=== PATIENT | male | born 1975 | race Caucasian/White ===

== ENCOUNTER 2016-10-24 16:40 | Inpatient (IN) | payer OTHER, BC ==
[2016-10-24 16:56] VITALS: BMI 39.5
[2016-10-24] MEDS ORDERED: ONDANSETRON 4 MG/2 ML VIAL IVPB ONE (17:01)
[2016-10-24] MEDS ORDERED: CEFTRIAXONE 1 GM in DEXTROSE 5%-WATER - 50 ML IVPB ONE ×2 (17:33→20:18)
[2016-10-24] MEDS ORDERED: OSELTAMIVIR PHOSPHATE 75 MG CAPSULE PO ONE (17:33)
[2016-10-24] MEDS ORDERED: ACETAMINOPHEN 325 MG TABLET (FP) PO ONE (17:33)
[2016-10-24] MEDS ORDERED: AZITHROMYCIN IVPB 500 MG in DEXTROSE 5%-WATER - 250 ML IVPB ONE (17:33)
[2016-10-24] MEDS ORDERED: ACETAMINOPHEN 325 MG TABLET (FP) ONE (17:36)
[2016-10-24] MEDS ORDERED: OSELTAMIVIR PHOSPHATE 75 MG CAPSULE ONE (17:36)
[2016-10-24] MEDS ORDERED: CEFTRIAXONE 50 ML ONE ×2 (17:37→21:28)
[2016-10-24] MEDS ORDERED: ONDANSETRON 4 MG/2 ML VIAL ONE (17:37)
[2016-10-24] MEDS ORDERED: AZITHROMYCIN IVPB 250 ML IVPB ONE (17:37)
[2016-10-24 17:41] LABS: MCH 32.4 pg (25.7-33.7); MCHC 33.5 g/dl (32.0-35.9); MEAN CELL VOLUME 96.7 fl (80-96); MEAN PLT VOLUME 10.6 fl (7.5-11.1); PLATELET COUNT 258 K/MM3 (134-434); RDW 13.5 % (11.9-15.9); WHITE BLOOD COUNT 21.6 K/mm3 (4.0-10.0)
--- NOTE | 2016-10-24 17:45 | PDOC ---
History of Present Illness - General History Source: Patient, EMS, Family Exam Limitations: No Limitations - History of Present Illness Initial Comments: 10/24/16 18:12 The patient is a 40 year old male, with a significant past medical history of hypertension, hyperlipidemia, coronary artery disease s/p stent (on Coumadin), CHF, antiphospholipid syndrome, mixed connective disorder (not on meds), s/p splenectomy and who is currently undergoing workup for lupus, who presents to the emergency department via EMS from an urgent care with positive influenza A and hypotension. The patient reports feeling weak over the past couple of days so he visited an urgent care today for his symptoms. He was swabbed for the flu at the urgent care, which was positive for influenza A. At the urgent care, the patient was noted to have a BP of 70/40 so EMS was activated to bring the patient to an ED. Currently in the ED, the patient reports feeling weak and nauseous. The patient denies chest pain or shortness of breath. The patient denies cough, vomiting, diarrhea. The patient's and [id number] are at the bedside. Allergies: None reported. Past Surgical History: Cardiac Stent (2012), Splenectomy. Social History: Current some day smoker. Reports social alcohol consumption. Denies drug use. PCP: Dr. Steffen Hogan Dictaphone Typist: Dr. Fuller <Stella Gregory - Last Filed: 10/24/16 19:14> - General History Source: Patient, EMS Exam Limitations: No Limitations <Rosalio Parish - Last Filed: 10/24/16 20:21> - General Chief Complaint: Weakness Stated Complaint: WEAKNESS Time Seen by Provider: 10/24/16 16:49 Past History <Stella Gregory - Last Filed: 10/24/16 19:14> - Past Medical History Anemia: Yes Diabetes: No GI Disorders: No - Surgical History Cardiac Surgery: Yes (stent 2012) - Immunization History Immunization Up to Date: Yes - Psycho/Social/Smoking Cessation Hx Anxiety: No Suicidal Ideation: No Smoking Status: Yes Smoking History: Current every day smoker Years of Tobacco Use: 0 Number of Cigarettes Smoked Daily: 10 Information on smoking cessation initiated: No 'Breaking Loose' booklet given: 11/08/12 Hx Alcohol Use: Yes (socially) Drug/Substance Use Hx: (huka) Substance Use Type: Alcohol <Rosalio Parish - Last Filed: 10/24/16 20:21> - Past Medical History Allergies/Adverse Reactions: Allergies Allergy/AdvReac Type Severity Reaction Status Date / Time No Known Drug Allergies Allergy Verified 10/24/16 19:57 Home Medications: Ambulatory Orders Aspirin [ASA -] 81 mg PO DAILY 05/09/14 Clopidogrel Bisulfate [Plavix -] 75 mg PO DAILY 05/09/14 Lisinopril [Prinivil -] 5 mg PO DAILY 05/09/14 Metoprolol Succinate [Toprol XL -] 10 mg PO BID 05/09/14 Warfarin Sodium [Coumadin] 10 mg PO HS 05/09/14 Rosuvastatin Calcium [Crestor] 10 mg PO HS 10/24/16 Review of Systems - Review of Systems Able to Perform ROS?: Yes Comments:: 10/24/16 18:02 GENERAL/CONSTITUTIONAL: +Weakness. No fever or chills. HEAD, EYES, EARS, NOSE AND THROAT: No change in vision. No ear pain or discharge. No sore throat. CARDIOVASCULAR: No chest pain or shortness of breath. RESPIRATORY: No cough, wheezing, or hemoptysis. GASTROINTESTINAL: +Nausea. No vomiting, diarrhea or constipation. GENITOURINARY: No dysuria, frequency, or change in urination. MUSCULOSKELETAL: No joint or muscle swelling or pain. No neck or back pain. SKIN: No rash. NEUROLOGIC: No headache, vertigo, loss of consciousness, or change in strength/ sensation. ENDOCRINE: No increased thirst. No abnormal weight change. HEMATOLOGIC/LYMPHATIC: No anemia, easy bleeding, or history of blood clots. ALLERGIC/IMMUNOLOGIC: No hives or skin allergy. <Stella Gregory - Last Filed: 10/24/16 19:14> *Physical Exam - Vital Signs Last Vital Signs Temp Pulse Resp BP Pulse Ox 99.3 F 98 H 18 106/62 98 10/24/16 16:53 10/24/16 16:53 10/24/16 16:53 10/24/16 16:53 10/24/16 17:24 - Physical Exam Comments: 10/24/16 18:01 GENERAL: Awake, alert, and fully oriented, weak appearing. HEAD: No signs of trauma. EYES: PERRLA, EOMI, sclera anicteric, conjunctiva clear. ENT: Dry mucosa. Auricles normal inspection, hearing grossly normal, nares patent, oropharynx clear without exudates. NECK: Normal ROM, supple, no lymphadenopathy, JVD, or masses. LUNGS: Tachypneic to the mid 20s. Breath sounds equal, clear to auscultation bilaterally. No wheezes, and no crackles. HEART: Regular rate and rhythm, normal S1 and S2, no murmurs, rubs or gallops. ABDOMEN: Soft, nontender, normoactive bowel sounds. No guarding, no rebound. No masses. EXTREMITIES: Normal range of motion, no edema. No clubbing or cyanosis. No cords , erythema, or tenderness. NEUROLOGICAL: Cranial nerves II through XII intact. Normal speech, gait deferred. SKIN: Warm, dry, normal turgor, no rashes or lesions noted. <Stella Gregory - Last Filed: 10/24/16 19:14> - Vital Signs Last Vital Signs Temp Pulse Resp BP Pulse Ox 99.3 F 98 H 18 106/62 98 10/24/16 16:53 10/24/16 16:53 10/24/16 16:53 10/24/16 16:53 10/24/16 17:24 <Rosalio Parish - Last Filed: 10/24/16 20:21> Heart Score/ECG Review #1 ECG reviewed & interpreted by me at: 17:30 10/24/16 17:44 NSR 96, LVH, no std/yue, QTC 480 msec <Rosalio Parish - Last Filed: 10/24/16 20:21> ED Treatment Course - LABORATORY CBC & Chemistry Diagram: 10/24/16 17:10 10/24/16 17:10 - ADDITIONAL ORDERS Additional order review: Laboratory Results 10/24/16 17:42 VBG pH 7.38 POC VBG pCO2 43.9 POC VBG pO2 31.7 Mixed VBG HCO3 25.1 H - Medications Given in the ED: ED Medications Discontinued Medications Generic Name Dose Route Start Last Admin Trade Name Freq PRN Reason Stop Dose Admin Acetaminophen 650 mg 10/24/16 17:33 10/24/16 17:45 Tylenol - PO 10/24/16 17:34 650 mg ONCE ONE Administration Ondansetron HCl 4 mg 10/24/16 17:01 10/24/16 17:45 Zofran Injection IVPB 10/24/16 17:02 4 mg ONCE ONE Administration Oseltamivir Phosphate 75 mg 10/24/16 17:33 10/24/16 17:45 Tamiflu - PO 10/24/16 17:34 75 mg ONCE ONE Administration <Stella Gregory - Last Filed: 10/24/16 19:14> - LABORATORY CBC & Chemistry Diagram: 10/24/16 17:10 10/24/16 17:10 - RADIOLOGY Radiology Studies Ordered: Category Date Time Status CHEST X-RAY PORTABLE* [RAD] Stat Radiology 10/24/16 17:01 Ordered <Rosalio Parish - Last Filed: 10/24/16 20:21> Medical Decision Making - Medical Decision Making 10/24/16 19:14 EXAM: RAD/CHEST X-RAY PORTABLE Reviewed By: Dr. Pily Burrows IMPRESSION: No acute cardiopulmonary disease is present. <Stella Gregory - Last Filed: 10/24/16 19:14> - Medical Decision Making 10/24/16 17:45 A portion of this note was documented by scribe services under my direction. I have reviewed the details of the note, within reason, and agree with the documentation with the following case summary and management plan written by me. Patient treated in the ED. Nursing notes are reviewed and incorporated into the medical decision-making. Vital signs reviewed. Peripheral IV access obtained by the nurse, laboratory studies are drawn and sent, reviewed and interpreted by myself. Vital Signs Temp Pulse Resp BP Pulse Ox 99.3 F 98 H 18 106/62 98 10/24/16 16:53 10/24/16 16:53 10/24/16 16:53 10/24/16 16:53 10/24/16 17:24 40 year old male with past medical history of antiphospholipid syndrome, mixed connective disorder (not on meds), splenectomy, currently under workup for lupus , HTN, HLD, CAD, CHF sent in from [facility] for hypotension and positive for influenza A. The patient reported waking up and feeling very fatigue and general malaise. The patient was noted to have a BP of 70/40 at [facility] and EMS was activated. Pt was given 600cc of IVF with improvement to blood pressures to 110s. The patient denies chest pain, shortness of breath, diarrhea, vomiting. Will start tamiflu, and given low BP and hx of splenectomy, will initiate ceftriaxone and azithromycin for possible PNA. Will monitor BP. Sepsis protocol. Admit. 10/24/16 20:19 CBC, BMP 10/24/16 17:10 10/24/16 17:10 CMP Sodium 136 mmol/L (136-145) 10/24/16 17:10 Potassium 3.7 mmol/L (3.5-5.1) 10/24/16 17:10 Chloride 100 mmol/L (98-107) 10/24/16 17:10 Carbon Dioxide 24 mmol/L (21-32) 10/24/16 17:10 Anion Gap 10 (8-16) 10/24/16 17:10 BUN 17 mg/dL (7-18) D 10/24/16 17:10 Creatinine 0.9 mg/dL (0.7-1.3) D 10/24/16 17:10 Creat Clearance w eGFR > 60 (>60) 10/24/16 17:10 Random Glucose 106 mg/dL (74-106) 10/24/16 17:10 Lactic Acid 1.052 mmol/L (0.4-2.0) 10/24/16 17:10 Calcium 7.8 mg/dL (8.5-10.1) L 10/24/16 17:10 Total Bilirubin 1.5 mg/dL (0.2-1.0) H D 10/24/16 17:10 AST 52 U/L (15-37) H 10/24/16 17:10 ALT 47 U/L (12-78) D 10/24/16 17:10 Alkaline Phosphatase 76 U/L (45-117) D 10/24/16 17:10 Creatine Kinase 140 IU/L (39-308) 10/24/16 17:10 Troponin I < 0.02 ng/ml (0.00-0.05) 10/24/16 17:10 Total Protein 6.8 g/dl (6.4-8.2) 10/24/16 17:10 Albumin 3.0 g/dl (3.4-5.0) L 10/24/16 17:10 Chest xray reviewed. Case discussed with Dr. Ferguson. Requests that I add on 1.5g vanc and another 1 g of ceftriaxone to make a total of 2 g ceftriaxone. Case discussed with Dr. Cho. Accepted to admission. <Rosalio Parish - Last Filed: 10/24/16 20:21> *DC/Admit/Observation/Transfer - Attestations Scribe Attestion: 10/24/16 17:58 Documentation prepared by Stella Gregory, acting as medical transcription editor for Rosalio Parish MD. <Stella Gregory - Last Filed: 10/24/16 19:14> - Discharge Dispostion Admit: Yes <Rosalio Parish - Last Filed: 10/24/16 20:21> Diagnosis at time of Disposition: Influenza - Referrals Referrals: Steffen Hogan MD [Primary Care Provider] -
[2016-10-24 17:57] LABS: VENOUS BLOOD GAS HCO3 25.1 meq/L (19-25); VENOUS PH 7.38 (7.32-7.42)
[2016-10-24 18:24] LABS: PROTHROMBIN TIME (PATIENT) 33.8 SEC (9.98-11.88)
[2016-10-24 18:47] LABS: ACTIVATED PTT 136.9 SECONDS (26.9-34.4)
[2016-10-24 19:59] LABS: ALK PHOS 76 U/L (45-117); ANION GAP 10 (8-16); BILIRUBIN,TOTAL 1.5 mg/dL (0.2-1.0); CALCIUM 7.8 mg/dL (8.5-10.1); CO2 24 mmol/L (21-32); CREATININE 0.9 mg/dL (0.7-1.3); GLUCOSE,RANDOM 106 mg/dL (74-106); SGOT/AST 52 U/L (15-37); SGPT/ALT 47 U/L (12-78); TOT PROT 6.8 g/dl (6.4-8.2)
[2016-10-24 20:01] LABS: TROPONIN I < 0.02 ng/ml (0.00-0.05)
[2016-10-24] MEDS ORDERED: VANCOMYCIN 1,500 MG in DEXTROSE 5%-WATER - 500 ML IVPB ONE (20:18)
--- NOTE | 2016-10-24 22:43 | HP ---
CHIEF COMPLAINT: "Sent from urgent care with Influenza A positive" PCP: Dr. Steffen Munoz HISTORY OF PRESENT ILLNESS: Patient is a 40-year-old male was sent from urgent care with Influenza A positive. As per the patient, he was feeling well until last night, but woke up feeling weak, tired. Patient mentions he had fever (Tmax- 101F) with chills but no rigors or sweating. Associated with stuffy nose, runny nose, myalgia, generalized weakness. Patient also complained of nausea and 1 episode of vomiting but no abdominal pain. Had severe headache 05/05 especially frontal associated with dizziness. He went to the urgent care this afternoon and was positive for Influenza A and was hypotensive (BP-70/40 mmHg) and hence was sent here for further evaluation. Patient is currently being evaluated for possible Lupus as outpatient. He states that he had a spleenectomy done in 2011 (doesn't know why). Patient got vaccinated only two years (Until 2013) post splenectomy. ER course was notable for: (1) Temp-99.3 F; Tachycardic 98 bpm; Leukocytosis 21.6 (2) EKG- NSR 96bpm; LVH; Qtc 480 msec (3) Azithromycin; Vancomycin, Ceftriaxone 2gm; Tamiflu Recent Travel: None PAST MEDICAL HISTORY: Hypertension, Hyperlipidemia, coronary artery disease s/p stent (on Coumadin), CHF, antiphospholipid syndrome, mixed connective disorder ( not on meds), s/p splenectomy PAST SURGICAL HISTORY: As mentioned above Social History: Smoking: Smokes weed 1-2 joints/week; smokes cigarettes occasionally Alcohol: Occasional Drugs: Marijuana Family History: Father of [place] at the age of 44 years; Mother has CAD s/p stents Allergies No Known Drug Allergies Allergy (Verified 10/24/16 19:57) HOME MEDICATIONS: Home Medications Medication Instructions Recorded Aspirin [ASA -] 81 mg PO DAILY 05/09/14 Clopidogrel Bisulfate [Plavix -] 75 mg PO DAILY 05/09/14 Lisinopril [Prinivil -] 5 mg PO DAILY 05/09/14 Metoprolol Succinate [Toprol XL -] 10 mg PO BID 05/09/14 Warfarin Sodium [Coumadin] 10 mg PO HS 05/09/14 Rosuvastatin Calcium [Crestor] 10 mg PO HS 10/24/16 REVIEW OF SYSTEMS CONSTITUTIONAL: Present: Generalized weakness, fever, chills Absent: diaphoresis, malaise, loss of appetite, weight change HEENT: Absent: rhinorrhea, nasal congestion, throat pain, throat swelling, difficulty swallowing, mouth swelling, ear pain, eye pain, visual changes CARDIOVASCULAR: Absent: chest pain, syncope, palpitations, irregular heart rate, lightheadedness , peripheral edema RESPIRATORY: Present: Absent: cough, shortness of breath, dyspnea with exertion, orthopnea, wheezing, stridor, hemoptysis GASTROINTESTINAL: Present: nausea, vomiting Absent: abdominal pain, abdominal distension, diarrhea, constipation, melena, hematochezia GENITOURINARY: Absent: dysuria, frequency, urgency, hesitancy, hematuria, flank pain, genital pain MUSCULOSKELETAL: Absent: myalgia, arthralgia, joint swelling, back pain, neck pain SKIN: Absent: rash, itching, pallor HEMATOLOGIC/IMMUNOLOGIC: Absent: easy bleeding, easy bruising, lymphadenopathy, frequent infections ENDOCRINE: Absent: unexplained weight gain, unexplained weight loss, heat intolerance, cold intolerance NEUROLOGIC: Absent: headache, focal weakness or paresthesias, dizziness, unsteady gait, seizure, mental status changes, bladder or bowel incontinence PSYCHIATRIC: Absent: anxiety, depression, suicidal or homicidal ideation, hallucinations. PHYSICAL EXAMINATION Vital Signs - 24 hr 10/24/16 22:34 Temperature 98.6 F Pulse Rate [ 88 Apical] Respiratory 18 Rate Blood Pressure 112/67 [Left Arm] O2 Sat by Pulse 99 Oximetry (%) GENERAL: Obese patient, lying comfortably in bed, Awake, alert, and fully oriented, in no acute distress. HEAD: Normal with no signs of trauma. EYES: EOM intact, no pallor or icterus EARS, NOSE, THROAT: Ears normal. Moist mucous membranes. NECK:Supple. LUNGS: Decreased breath sounds bilaterally, clear to auscultation bilaterally. No wheezes, and no crackles. No accessory muscle use. HEART: Regular rate and rhythm, normal S1 and S2 without murmur, rub or gallop. ABDOMEN: Soft, nontender, not distended, normoactive bowel sounds, no guarding, no rebound, no masses. No hepatomegaly or splenomegaly. MUSCULOSKELETAL: Normal range of motion at all joints. No bony deformities or tenderness. No CVA tenderness. UPPER EXTREMITIES: 2+ pulses, warm, well-perfused. No cyanosis. No clubbing. No peripheral edema. LOWER EXTREMITIES: 2+ pulses, warm, well-perfused. No calf tenderness. No peripheral edema. NEUROLOGICAL: Cranial nerves II-XII intact. Normal speech. Normal gait. PSYCHIATRIC: Cooperative. Good eye contact. Appropriate mood and affect. SKIN: Warm, dry, normal turgor, no rashes or lesions noted, normal capillary refill. ASSESSMENT/PLAN: Patient is a 40-year-old male with significant past medical history of Hypertension, Hyperlipidemia, coronary artery disease s/p stent (on Coumadin), CHF, antiphospholipid syndrome, mixed connective disorder (not on meds), s/p splenectomy was sent from urgent care with Influenza A positive. # Sepsis most likely secondary to Influenza Patient presented with fever (Tmax-101F); chills; generalized weakness; nausea, vomiting (once); myalgia He went to the urgent care and was Influenza A positive and hypotensive (70/ 40 mmHg) was sent to the ED for further evaluation On arrival, patient Temp-99.3 F; Tachycardic 98 bpm; Leukocytosis 21.6 EKG- NSR 96bpm; LVH; Qtc 480 msec In the ED, patient received Azithromycin; Vancomycin, Ceftriaxone 2gm; Tamiflu Placed on observation in tele Continue IV Ceftriaxone 2 gm Daily Continue IV Vancomycin Tamiflu continued ID consult placed Blood cultures/ Urine culture pending Monitor vitals Isolation precaution # CHF (not in exacerbation) Patients recent Echo 2013: Inferior wall akinesis. Mild MR. Left ventricle is moderately dilated Would consider doing an echo as outpatient Continuous cardiac monitoring # s/p splenectomy Cause unknown Patient hasn't received any vaccinations since 2013 Would consider giving him vaccines covering encapsulated organisms # Hypertension Continue Metoprolol 50mg PO BID from tomorrow Hold Lisinopril Since patient was hypotensive when he came in, will hold one hypertensive meds for now # Hyperlipidemia Continue Statin # CAD s/p 2 stents Continue Aspirin, plavix, statin On coumadin (maintain INR 2-3) # Antiphopholipid syndrome # Mixed connective tissue disorder Not on any meds # ? Lupus Work up being done as outpatient Please try to get the paper works # FEN Gentle hydration Electrolytes to be repeated Sodium controlled diet # Prophylaxis For DVT- On Scds, patient ambulating For GI- Not indicated # Code Status: Full code # Dispo: Placed on observation. Likely 1-2 days. Illness, Investigation and Plan of care explained to the patient. He verbalized understanding. Case seen and discussed with Dr. Cho. Visit type - Emergency Visit Emergency Visit: Yes ED Registration Date: 10/24/16 Care time: The patient presented to the Emergency Department on the above date and was hospitalized for further evaluation of their emergent condition. - New Patient This patient is new to me today: Yes Date on this admission: 10/24/16 - Critical Care Critical Care patient: No
[2016-10-24] MEDS ORDERED: CEFTRIAXONE 50 ML IVPB ONE (22:48)
[2016-10-24] MEDS ORDERED: ONDANSETRON 4 MG/2 ML VIAL IVPB PRN (22:52)
--- NOTE | 2016-10-24 23:22 | PN ---
Teaching Attending Note Name of Resident: Zee Durbin Chief Complaint generalized weakness, myalgia and nausea x 1 day HPI 40 year old male presents with 1 day history of generalized weakness, myalgias , SOB and fever . Was seen in urgent care and found to have influenza A and low BP . Transferred to ER for further management due to history of splenectomy. ROS PMH Antiphospholipid Syndrome HTN CAD CHF MCTD PSH Splenectomy CCath resulting in placement of stents ALL NKA MEDS Home Medication List Medication Instructions Recorded Confirmed Type Aspirin [ASA -] 81 mg PO DAILY 05/09/14 10/24/16 History Clopidogrel Bisulfate [Plavix -] 75 mg PO DAILY 05/09/14 10/24/16 History Lisinopril [Prinivil -] 5 mg PO DAILY 05/09/14 10/24/16 History Metoprolol Succinate [Toprol XL -] 10 mg PO BID 05/09/14 10/24/16 History Warfarin Sodium [Coumadin] 10 mg PO HS 05/09/14 10/24/16 History Rosuvastatin Calcium [Crestor] 10 mg PO HS 10/24/16 10/24/16 History Physical Exam GEN in NAD CVS S1 S2 + no MRG RS CTA b/l ABD soft , NT EXT no edema no clubbing no cyanosis LABS Abnormal Lab Results 10/24/16 10/24/16 10/24/16 17:10 17:10 17:10 WBC 21.6 H D MCV 96.7 H Monocytes % 14.0 H INR 3.00 H D PTT (Actin FS) 136.9 H D Mixed VBG HCO3 Calcium 7.8 L Total Bilirubin 1.5 H D AST 52 H Albumin 3.0 L 10/24/16 17:42 WBC MCV Monocytes % INR PTT (Actin FS) Mixed VBG HCO3 25.1 H Calcium Total Bilirubin AST Albumin Influenza A positive CXR NAPD Asessment and Plan 1. Sepsis secondary to influenza - hypodermically stable after bolus of fluids . - Tamiflu -c/w IVF - ceftriaxone and vanco given per ID due to history of splenectomy . - blood cultures 2. History of antiphospholipid syndrome - c/w coumadin - INR daily 3. Hx of CAD - no chest pain - c/w metoprolol/ statin/ plavix 4. Hx of CHF -most recent documented EF WNL - stable 5. DVT PPX - anticoagulated
[2016-10-24] MEDS: SODIUM CHLORIDE 1,000 ML IV SCH (23:51)
[2016-10-24] MEDS ORDERED: ACETAMINOPHEN 325 MG TABLET (FP) PO PRN (23:55)
[2016-10-25 01:38] LABS: URINE APPEARANCE CLEAR; URINE BILIRUBIN NEGATIVE (NEGATIVE); URINE COLOR YELLOW; URINE GLUCOSE (UA) NEGATIVE (NEGATIVE); URINE KETONE TRACE (NEGATIVE); URINE LEUK ESTERASE NEGATIVE (NEGATIVE); URINE NITRITE NEGATIVE (NEGATIVE); URINE PROTEIN NEGATIVE (NEGATIVE); URINE UROBILINOGEN 4.0 E.U/dl E.U./dl (0.2-1.0)
[2016-10-25 02:18] LABS: URINE BLOOD 1+ (NEGATIVE)
[2016-10-25 04:10] LABS: URINE HYALINE CAST 1 /lpf; URINE MUCUS RARE; URINE RBC 2 /hpf (0-3); URINE WBC 2 /hpf (3-5)
[2016-10-25] MEDS ORDERED: INSULIN SLIDING SCALE (NOVOLOG) 1 VIAL SQ SCH (07:00)
[2016-10-25 08:59] LABS: BASOPHIL 0.5 % (0-2.0); EOSINOPHIL 0.6 % (0-4.5); MCH 33.2 pg (25.7-33.7); MCHC 33.8 g/dl (32.0-35.9); MEAN PLT VOLUME 10.5 fl (7.5-11.1); PLATELET COUNT 209 K/MM3 (134-434); WHITE BLOOD COUNT 17.8 K/mm3 (4.0-10.0)
--- NOTE | 2016-10-25 09:12 | PN ---
Physical Exam: SUBJECTIVE: Patient seen and examined Patient presented with fever (Tmax-101F); chills; generalized weakness; nausea , vomiting (once); myalgia He went to the urgent care and was found to have Influenza A positive with hypotenstion (70/40 mmHg) was sent to the ED for further evaluation. OBJECTIVE: Vital Signs Temperature 98.1 F 10/25/16 06:00 Pulse Rate 90 10/25/16 06:00 Respiratory Rate 20 10/25/16 06:00 Blood Pressure 135/69 10/25/16 06:00 O2 Sat by Pulse Oximetry (%) 97 10/25/16 00:37 GENERAL: The patient is awake, alert, and fully oriented, in no acute distress. HEAD: Normal with no signs of trauma. EYES: PERRL, extraocular movements intact, sclera anicteric, conjunctiva clear. ENT: Ears normal, positive for exudate , moist mucous membranes. NECK: Trachea midline, full range of motion, supple. LUNGS: Breath sounds equal, clear to auscultation bilaterally, no wheezes, no crackles, no accessory muscle use. HEART: Regular rate and rhythm, S1, S2 without murmur, rub or gallop. ABDOMEN: Soft, nontender, nondistended, normoactive bowel sounds, no guarding, no rebound, no hepatosplenomegaly, no masses. EXTREMITIES: 2+ pulses, warm, well-perfused, no edema. NEUROLOGICAL: Cranial nerves II through XII grossly intact. Normal speech, gait not observed. PSYCH: Normal mood, normal affect. SKIN: Warm, dry, normal turgor, no rashes or lesions noted CBCD WBC 17.8 K/mm3 (4.0-10.0) H 10/25/16 06:20 RBC 3.90 M/mm3 (4.00-5.60) L 10/25/16 06:20 Hgb 12.9 GM/dL (11.7-16.9) 10/25/16 06:20 Hct 38.3 % (35.4-49) 10/25/16 06:20 MCV 98.0 fl (80-96) H 10/25/16 06:20 MCHC 33.8 g/dl (32.0-35.9) 10/25/16 06:20 RDW 13.0 % (11.9-15.9) 10/25/16 06:20 Plt Count 209 K/MM3 (134-434) 10/25/16 06:20 MPV 10.5 fl (7.5-11.1) 10/25/16 06:20 CMP Sodium 136 mmol/L (136-145) 10/24/16 17:10 Potassium 3.7 mmol/L (3.5-5.1) 10/24/16 17:10 Chloride 100 mmol/L (98-107) 10/24/16 17:10 Carbon Dioxide 24 mmol/L (21-32) 10/24/16 17:10 Anion Gap 10 (8-16) 10/24/16 17:10 BUN 17 mg/dL (7-18) D 10/24/16 17:10 Creatinine 0.9 mg/dL (0.7-1.3) D 10/24/16 17:10 Creat Clearance w eGFR > 60 (>60) 10/24/16 17:10 Random Glucose 106 mg/dL (74-106) 10/24/16 17:10 Calcium 7.8 mg/dL (8.5-10.1) L 10/24/16 17:10 Total Bilirubin 1.5 mg/dL (0.2-1.0) H D 10/24/16 17:10 AST 52 U/L (15-37) H 10/24/16 17:10 ALT 47 U/L (12-78) D 10/24/16 17:10 Alkaline Phosphatase 76 U/L (45-117) D 10/24/16 17:10 Total Protein 6.8 g/dl (6.4-8.2) 10/24/16 17:10 Albumin 3.0 g/dl (3.4-5.0) L 10/24/16 17:10 CARDIAC ENZYMES Creatine Kinase 140 IU/L (39-308) 10/24/16 17:10 Troponin I < 0.02 ng/ml (0.00-0.05) 10/24/16 17:10 INR, PTT INR 3.00 (0.82-1.09) H D 10/24/16 17:10 Active Medications Generic Name Dose Route Start Last Admin Trade Name Freq PRN Reason Stop Dose Admin Aspirin 81 mg 10/25/16 10:00 Asa - PO DAILY JEAN Clopidogrel Bisulfate 75 mg 04/01/17 10:00 Plavix - PO DAILY [facility] Sodium Chloride 1,000 mls @ 100 mls/hr 10/24/16 23:00 10/24/16 23:51 Normal Saline - IV 100 mls/hr ASDIR [facility] Administration Ceftriaxone Sodium 100 mls @ 200 mls/hr 10/25/16 10:00 Rocephin 2gm Ivpb (Pre-Docked) IVPB DAILY [facility] Vancomycin HCl 1,250 mg/ 250 mls @ 166.667 mls/hr 10/25/16 10:00 Dextrose IVPB DAILY [facility] Protocol Metoprolol Succinate 50 mg 10/25/16 10:00 Toprol Xl - PO BID [facility] Oseltamivir Phosphate 75 mg 10/25/16 10:00 Tamiflu - PO 10/30/16 09:59 BID [facility] Rosuvastatin Calcium 10 mg 10/25/16 22:00 Crestor - PO HS [facility] Warfarin Sodium 10 mg 10/25/16 18:00 Coumadin - PO DAILY@1800 [facility] Home Medications Medication Instructions Recorded Aspirin [ASA -] 81 mg PO DAILY 05/09/14 Clopidogrel Bisulfate [Plavix -] 75 mg PO DAILY 05/09/14 Lisinopril [Prinivil -] 5 mg PO DAILY 05/09/14 Metoprolol Succinate [Toprol XL -] 10 mg PO BID 05/09/14 Warfarin Sodium [Coumadin] 10 mg PO HS 05/09/14 Rosuvastatin Calcium [Crestor] 10 mg PO HS 10/24/16 EKG- NSR 96bpm; LVH; Qtc 480 msec ASSESSMENT/PLAN: Patient is a 40-year-old male with significant past medical history of Hypertension, Hyperlipidemia, coronary artery disease s/p stent (on Coumadin), CHF, antiphospholipid syndrome, mixed connective disorder (not on meds), s/p splenectomy was sent from urgent care with Influenza A positive. On arrival, patient Temp-99.3 F; Tachycardic 98 bpm; Leukocytosis 21.6 # Sepsis most likely secondary to Influenza , IVF, started on Tamiflu, discussed with , On Rocephin IV and Vancomycin daily In the ED, patient received Azithromycin; Vancomycin, Ceftriaxone 2gm; Tamiflu. Follow Blood cultures/ Urine culture, droplet Isolation precaution # POsitive for exudative pharyngitis: On IV antibiotic, also culture was send after antibiotic was started. # s/p splenectomy with unknown cause, Patient hasn't received any vaccinations since 2013 he will need pneumonia vaccine and further recommendation as per ID # Antiphopholipid syndrome on daily coumadin, Daily INR, PT, INR is 3.00 today will continue # Hx of CHF stable(not in exacerbation); Patients recent Echo 2013: Inferior wall akinesis. Mild MR. Left ventricle is moderately dilated; repeat echo as outpatient Continuous cardiac monitoring # Hypertension continue Metoprolol 50mg PO BID from tomorrow, Hold Lisinopril Since patient was found to be hypotensive . # Hyperlipidemia continue Statin # CAD s/p 2 stents Continue Aspirin, plavix, statin # Mixed connective tissue disorder/ lupus work up as an outpatient, On anticoagulation ; coumadin (maintain INR 2-3) # DVT Px: Coumadin # Code Status: Full code Visit type - Emergency Visit Emergency Visit: Yes ED Registration Date: 10/24/16 Care time: The patient presented to the Emergency Department on the above date and was hospitalized for further evaluation of their emergent condition. - New Patient This patient is new to me today: Yes Date on this admission: 10/25/16 - Critical Care Critical Care patient: No
[2016-10-25] MEDS ORDERED: INFLUENZA VACCINE 45 MCG/0.5 ML (MDV 16-17) IM ONE (10:00)
[2016-10-25] MEDS ORDERED: VANCOMYCIN 1,250 MG in DEXTROSE 5%-WATER - 250 ML IVPB SCH (10:00)
[2016-10-25] MEDS ORDERED: PT OWN MED DRAWER 7, Y5N ONE (10:00)
[2016-10-25] MEDS: METOPROLOL SUCCINATE 50 MG TAB.SR.24H (FP) PO SCH ×2 (10:07→21:33)
[2016-10-25] MEDS: OSELTAMIVIR PHOSPHATE 75 MG CAPSULE PO SCH ×2 (10:07→21:34)
[2016-10-25] MEDS: CLOPIDOGREL BISULFATE 75 MG TABLET (FP) PO SCH (10:07)
[2016-10-25] MEDS: CEFTRIAXONE 100 ML IVPB SCH (10:13)
[2016-10-25] MEDS: ASPIRIN 81 MG CHEWABLE TABLETS PO SCH (10:14)
[2016-10-25 10:17] LABS: ALBUMIN 3.2 g/dl (3.4-5.0); ANION GAP 11 (8-16); BILIRUBIN,TOTAL 1.3 mg/dL (0.2-1.0); CALCIUM 8.1 mg/dL (8.5-10.1); CO2 23 mmol/L (21-32); CREATININE 0.8 mg/dL (0.7-1.3); GLUCOSE,RANDOM 86 mg/dL (74-106); MAGNESIUM 1.9 mg/dL (1.8-2.4); PHOSPHOROUS 2.3 mg/dL (2.5-4.9); SGOT/AST 61 U/L (15-37); SGPT/ALT 54 U/L (12-78); TOT PROT 6.6 g/dl (6.4-8.2)
[2016-10-25 10:18] LABS: ALK PHOS 85 U/L (45-117)
[2016-10-25 10:43] LABS: INR 2.57 (0.82-1.09); PROTHROMBIN TIME (PATIENT) 28.8 SEC (9.98-11.88)
--- NOTE | 2016-10-25 12:02 | PN ---
Progress Note (short form) - Note Progress Note: ID consult dictated 40 year old man with history of splenectom 2011 with sudden onset of weakness, stuffy nose headache and myalgias yesterday am, stayed in bed all day waent to [facility] in the evening, told he was positive for influenza A, noted to be hypotensive and EMS called, received IVF 600 cc with resolution of hypotension, reports fever 101 at home noted to have leukocytosis, influenza screen in our ED negative started on tamiflu cxray negative given vancomycin/rocephin and zithromax in Ed no cough, notes sore throat fells much better on PE he is quite comfortable +exudates on tonsils fever in 40 year old man s/p splenectomy 2011 reprts receiving al his vaccines at that time followed by Dr Steffen Hogan +influenza screen at [facility] ?exudative pharyngitis- throat culture sent but after antibiotics would continue ceftriaxone and tamiflu f/u cultures would contact PMD if he has not had Prevnar he should get prevnar followed by pneumovax 8 weeks later (last in 2011 per patient) he should get yearly influenza vaccine PMD should check his vaccine history for meningococcal vaccine- he should get vaccinated for A and B- this can be done as outpt by his PMD - d/w ED MD last pm as well d/w hospitalist today Problem List - Problems (1) Influenza Code(s): J11.1 - FLU DUE TO UNIDENTIFIED INFLUENZA VIRUS W OTH RESP MANIFEST (2) Pharyngitis Code(s): J02.9 - ACUTE PHARYNGITIS, UNSPECIFIED (3) Post-splenectomy Code(s): Z90.81 - ACQUIRED ABSENCE OF SPLEEN
--- NOTE | 2016-10-25 12:20 | EKG ---
Test Reason : Blood Pressure : / mmHG Vent. Rate : 096 BPM Atrial Rate : 096 BPM P-R Int : 176 ms QRS Dur : 100 ms QT Int : 380 ms P-R-T Axes : 017 -22 060 degrees QTc Int : 480 ms NORMAL SINUS RHYTHM MINIMAL VOLTAGE CRITERIA FOR LVH, MAY BE NORMAL VARIANT PROLONGED QT ABNORMAL ECG WHEN COMPARED WITH ECG OF 10-MAY-2014 08:33, VENT. RATE HAS INCREASED BY 32 BPM NONSPECIFIC T WAVE ABNORMALITY, IMPROVED IN LATERAL LEADS Confirmed by PRABHA SAHU MD ([id number]) on 10/25/2016 12:19:56 PM Referred By: Confirmed By:PRABHA SAHU MD
--- NOTE | 2016-10-25 14:23 | CONS ---
DATE OF CONSULTATION: DATE OF DICTATION: 10/25/2016 Requested by the hospitalist service. A 40-year-old man with a past medical history of splenectomy in 2011, apparently done at [facility], for an enlarged spleen. He is followed by Dr. Cisneros. He reports having received his vaccinations, prior to his elective splenectomy, at that time. He reports he has not received any future vaccinations and did not get an influenza vaccine this year. He was well on night. On Thursday morning, he awoke with generalized weakness, stuffy nose, headache. He felt very, very achy. He vomited 1 time. There was no diarrhea. There was no dysuria. There was no cough. He spent the day in bed. His [id number] came over later in the day, noted that he was not appearing well, so he took him to the urgent care center where they screened him for influenza A. He was found to be positive. He was hypotensive with a blood pressure of 70/40. EMS was called. He received 600 mL of IV fluids by EMS with resolution of his hypotension. He reports having had fever of 101, yesterday. He has no history of any travel. He has two children, 2 and 5, and the 2-year-old has a runny nose. He has not recently been hospitalized. PAST MEDICAL HISTORY: Notable for a history of hypertension, hyperlipidemia, coronary artery disease status post stent. He has a history of congestive heart failure, antiphospholipid syndrome, mixed connective tissue disorder. His only surgery is that he is status post splenectomy. He is followed by Dr. Steffen Hogan. ALLERGIES: He has no known drug allergies. MEDICATIONS: As an outpatient include aspirin, Plavix, lisinopril, Toprol XL, Coumadin, and Crestor. FAMILY HISTORY: His father of coronary artery disease. SOCIAL HISTORY: He is . He has two children, 2 and 5. 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 He does not use public transportation. He smokes marijuana occasionally and reports social alcohol use. There is no drug use. REVIEW OF SYSTEMS: There is no diarrhea. His weakness has resolved. He has no cough. He notes he has a sore throat. PHYSICAL EXAMINATION: General: He is a young man in no acute distress. Vital signs: He weighs 260 pounds. Temperature is 98.1, T-max of 99; pulse of 90; blood pressure 135/69; respiratory rate is 22. HEENT: Exam is normocephalic. His eyes are anicteric. He has exudates on his tonsils. Neck: Supple. He has shoddy cervical adenopathy. Lungs: Clear to auscultation. Heart: Regular rate and rhythm. Abdomen: Soft. Nontender. He has a well healed abdominal scar from a splenectomy. Extremities: Without edema. Skin: He has no rash. LABORATORIES: Notable for a white count today of 17.8, was 21.6 yesterday. INR is 2.5. BUN is 11 and creatinine is 0.8. His urinalysis has 2 white cells. His chest x-ray is negative for infiltrate. Blood cultures and urine culture are pending. Influenza screen done in our institution is negative. ASSESSMENT AND PLAN: This is fever in a 40-year-old man, status post splenectomy in 2011, who reports having received his vaccines at that time, with a positive influenza screen done at [facility]. Question of exudative pharyngitis on examination. I did a throat culture now, but this is after he received antibiotics of vancomycin, Rocephin and Zithromax in the emergency room. I would suggest we continue ceftriaxone and Tamiflu, at this time, with droplet isolation. Follow up his cultures. Would contact his PMD. If he has not had Prevnar, he should get Prevnar followed by Pneumovax 8 weeks later. He should get a yearly influenza vaccine. His PMD should check his vaccine history for meningococcal vaccination, if he has not been vaccinated for it. He has probably been vaccinated for A, which would have been a recommendation 5 years ago. If he has not been vaccinated for B, this can be done as an outpatient by his PMD. This was all discussed with the hospitalist. Further recommendations to follow. ELHAM QUINN M.D. [id number]
[2016-10-25] MEDS: WARFARIN NA 10 MG TABLET (FP) PO SCH (18:08)
[2016-10-25] MEDS ORDERED: ACETAMINOPHEN 325 MG TABLET (FP) PO ONE (20:07)
[2016-10-25] MEDS: ROSUVASTATIN CA 10 MG TABLET (FP) PO SCH (21:33)
[2016-10-25] MEDS: SODIUM CHLORIDE 1,000 ML IV SCH (22:42)
[2016-10-26] MEDS ORDERED: PT OWN MED DRAWER 7, Y5N ONE ×2 (09:33→20:58)
[2016-10-26] MEDS: OSELTAMIVIR PHOSPHATE 75 MG CAPSULE PO SCH ×2 (09:39→21:04)
[2016-10-26] MEDS: CEFTRIAXONE 100 ML IVPB SCH (09:39)
[2016-10-26] MEDS: METOPROLOL SUCCINATE 50 MG TAB.SR.24H (FP) PO SCH ×2 (09:39→21:04)
[2016-10-26] MEDS: ASPIRIN 81 MG CHEWABLE TABLETS PO SCH (09:39)
[2016-10-26] MEDS: CLOPIDOGREL BISULFATE 75 MG TABLET (FP) PO SCH (09:39)
[2016-10-26] MEDS ORDERED: PNEUMOC 13-VAL CONJ-DIP CRM/PF 0.5 ML DISP.SYRIN IM ONE ×2 (10:33→20:00)
--- NOTE | 2016-10-26 10:41 | PN ---
Progress Note (short form) - Note Progress Note: feels much better still some sore throat and stuffy nose Vital Signs Period Temp Pulse Resp BP Sys/[place] Pulse Ox Last 24 Hr 97.8 F-99.7 F 76-84 18-20 106-119/50-82 96 no pharyngeal exudates noted cor-rrr lungs clear abd soft,nt ext no edema CBC, BMP 10/25/16 06:20 10/25/16 06:20 Microbiology 10/25/16 12:00 Throat Throat Culture - Final NO BETA HEMOLYTIC STREPTOCOCCI ISOLATED 10/24/16 17:06 Blood - Peripheral Venous Blood Culture - Preliminary NO GROWTH OBTAINED AFTER 24 HOURS, INCUBATION TO CONTINUE FOR 4 DAYS. 10/24/16 17:06 Blood - Peripheral Venous Blood Culture - Preliminary NO GROWTH OBTAINED AFTER 24 HOURS, INCUBATION TO CONTINUE FOR 4 DAYS. 10/24/16 21:30 Nasopharyngeal Swab Influenza Types A,B Antigen (JAVI) - Final 10/24/16 21:30 Nasopharyngeal Swab - Final a/p influenza A- tamiflu 5 days and flu vaccine (given) ?strep throat- culture sent after antiotics started he had exudative pharyngitis post splenectomy- prevnar prior to d/c, f/u PMD for further vaccines symptoms all improving f/u labs today liver/gb ultrasound for elevated bili (improving) today would complete course of antibiotics (now day #3 rocephin) po augmentin for one week for possible pharyngitis d/w Dr Matamoros Problem List - Problems (1) Influenza Code(s): J11.1 - FLU DUE TO UNIDENTIFIED INFLUENZA VIRUS W OTH RESP MANIFEST (2) Pharyngitis Code(s): J02.9 - ACUTE PHARYNGITIS, UNSPECIFIED (3) Post-splenectomy Code(s): Z90.81 - ACQUIRED ABSENCE OF SPLEEN
[2016-10-26 11:45] LABS: BASOPHIL 0.4 % (0-2.0); EOSINOPHIL 2.2 % (0-4.5); MCH 32.8 pg (25.7-33.7); MCHC 33.8 g/dl (32.0-35.9); MEAN CELL VOLUME 96.9 fl (80-96); MEAN PLT VOLUME 10.5 fl (7.5-11.1); NEUTROPHILS 58.9 % (42.8-82.8); PLATELET COUNT 220 K/MM3 (134-434)
[2016-10-26 11:58] LABS: INR 2.33 (0.82-1.09); PROTHROMBIN TIME (PATIENT) 26.1 SEC (9.98-11.88)
--- NOTE | 2016-10-26 12:01 | PN ---
Progress Note (short form) - Note Progress Note: Patient is feeling better, wants to go home. No fever or chills, no shortness of breath. Vital Signs Temperature 99.3 F 10/26/16 10:00 Pulse Rate 80 10/26/16 10:00 Respiratory Rate 20 10/26/16 10:00 Blood Pressure 106/58 10/26/16 10:00 O2 Sat by Pulse Oximetry (%) 96 10/25/16 21:00 GENERAL: The patient is awake, alert, and fully oriented, in no acute distress. HEAD: Normal with no signs of trauma. EYES: PERRL, extraocular movements intact, sclera anicteric, conjunctiva clear. ENT: Ears normal, positive for exudate , moist mucous membranes. NECK: Trachea midline, full range of motion, supple. LUNGS: Breath sounds equal, clear to auscultation bilaterally, no wheezes, no crackles, no accessory muscle use. HEART: Regular rate and rhythm, S1, S2 without murmur, rub or gallop. ABDOMEN: Soft, nontender, nondistended, normoactive bowel sounds, no guarding, no rebound, no hepatosplenomegaly, no masses. EXTREMITIES: 2+ pulses, warm, well-perfused, no edema. NEUROLOGICAL: Cranial nerves II through XII grossly intact. Normal speech, gait not observed. PSYCH: Normal mood, normal affect. SKIN: Warm, dry, normal turgor, no rashes or lesions noted CBCD WBC 10.0 K/mm3 (4.0-10.0) D 10/26/16 11:15 RBC 4.13 M/mm3 (4.00-5.60) 10/26/16 11:15 Hgb 13.5 GM/dL (11.7-16.9) 10/26/16 11:15 Hct 40.0 % (35.4-49) 10/26/16 11:15 MCV 96.9 fl (80-96) H 10/26/16 11:15 MCHC 33.8 g/dl (32.0-35.9) 10/26/16 11:15 RDW 13.0 % (11.9-15.9) 10/26/16 11:15 Plt Count 220 K/MM3 (134-434) 10/26/16 11:15 MPV 10.5 fl (7.5-11.1) 10/26/16 11:15 CMP Sodium 136 mmol/L (136-145) 10/25/16 06:20 Potassium 3.9 mmol/L (3.5-5.1) 10/25/16 06:20 Chloride 102 mmol/L (98-107) 10/25/16 06:20 Carbon Dioxide 23 mmol/L (21-32) 10/25/16 06:20 Anion Gap 11 (8-16) 10/25/16 06:20 BUN 11 mg/dL (7-18) D 10/25/16 06:20 Creatinine 0.8 mg/dL (0.7-1.3) 10/25/16 06:20 Creat Clearance w eGFR > 60 (>60) 10/25/16 06:20 Random Glucose 86 mg/dL (74-106) 10/25/16 06:20 Calcium 8.1 mg/dL (8.5-10.1) L 10/25/16 06:20 Total Bilirubin 1.3 mg/dL (0.2-1.0) H 10/25/16 06:20 AST 61 U/L (15-37) H 10/25/16 06:20 ALT 54 U/L (12-78) 10/25/16 06:20 Alkaline Phosphatase 85 U/L (45-117) 10/25/16 06:20 Total Protein 6.6 g/dl (6.4-8.2) 10/25/16 06:20 Albumin 3.2 g/dl (3.4-5.0) L 10/25/16 06:20 CARDIAC ENZYMES Creatine Kinase 140 IU/L (39-308) 10/24/16 17:10 Troponin I < 0.02 ng/ml (0.00-0.05) 10/24/16 17:10 Current Medications Generic Name Dose Route Start Last Admin Trade Name Freq PRN Reason Stop Dose Admin Aspirin 81 mg 10/25/16 10:00 10/26/16 09:39 Asa - PO 81 mg DAILY JEAN Administration Clopidogrel Bisulfate 75 mg 10/25/16 10:00 10/26/16 09:39 Plavix - PO 75 mg DAILY JEAN Administration Sodium Chloride 1,000 mls @ 100 mls/hr 10/24/16 23:00 10/25/16 22:42 Normal Saline - IV 100 mls/hr ASDIR JEAN Administration Ceftriaxone Sodium 100 mls @ 200 mls/hr 10/25/16 10:00 10/26/16 09:39 Rocephin 2gm Ivpb (Pre-Docked) IVPB 200 mls/hr DAILY JEAN Administration Metoprolol Succinate 50 mg 10/25/16 10:00 10/26/16 09:39 Toprol Xl - PO 50 mg BID JEAN Administration Oseltamivir Phosphate 75 mg 10/25/16 10:00 10/26/16 09:39 Tamiflu - PO 10/30/16 09:59 75 mg BID JEAN Administration Rosuvastatin Calcium 10 mg 10/25/16 22:00 10/25/16 21:33 Crestor - PO 10 mg HS JEAN Administration Warfarin Sodium 10 mg 10/25/16 18:00 10/25/16 18:08 Coumadin - PO 10 mg DAILY@1800 JEAN Administration Home Medications Medication Instructions Recorded Aspirin [ASA -] 81 mg PO DAILY 05/09/14 Clopidogrel Bisulfate [Plavix -] 75 mg PO DAILY 05/09/14 Lisinopril [Prinivil -] 5 mg PO DAILY 05/09/14 Metoprolol Succinate [Toprol XL -] 10 mg PO BID 05/09/14 Warfarin Sodium [Coumadin] 10 mg PO HS 05/09/14 Rosuvastatin Calcium [Crestor] 10 mg PO HS 10/24/16 Laboratory Tests 10/24/16 10/25/16 10/26/16 17:10 09:55 11:15 INR 3.00 H D 2.57 H 2.33 H Microbiology 10/24/16 17:06 Blood - Peripheral Venous Blood Culture - Preliminary NO GROWTH OBTAINED AFTER 48 HOURS, INCUBATION TO CONTINUE FOR 3 DAYS. 10/24/16 17:06 Blood - Peripheral Venous Blood Culture - Preliminary NO GROWTH OBTAINED AFTER 48 HOURS, INCUBATION TO CONTINUE FOR 3 DAYS. 10/24/16 23:10 Urine - Urine Clean Catch Urine Culture - Final NO GROWTH OBTAINED 10/25/16 12:00 Throat Throat Culture - Final NO BETA HEMOLYTIC STREPTOCOCCI ISOLATED 10/24/16 21:30 Nasopharyngeal Swab Influenza Types A,B Antigen (JAVI) - Final 10/24/16 21:30 Nasopharyngeal Swab - Final EKG- NSR 96bpm; LVH; Qtc 480 msec ASSESSMENT/PLAN: Patient is a 40-year-old male with significant past medical history of Hypertension, Hyperlipidemia, coronary artery disease s/p stent (on Coumadin), CHF, antiphospholipid syndrome, mixed connective disorder (not on meds), s/p splenectomy was sent from urgent care with Influenza A positive. On arrival, patient Temp-99.3 F; Tachycardic 98 bpm; Leukocytosis 21.6 # Sepsis due Influenza and exudative pharyngitis, IVF, started on Tamiflu, discussed with , On Rocephin IV and Vancomycin daily to continue for now, In the ED, patient received Azithromycin; Vancomycin, Ceftriaxone 2gm; Tamiflu.droplet Isolation precaution # Positive for exudative pharyngitis: On IV antibiotic, also culture was send after antibiotic was started. # s/p splenectomy , Patient hasn't received any vaccinations since 2013, As per ID recommendations ,pneumonia vaccine and Flu vaccine. # Antiphopholipid syndrome on daily coumadin, Daily INR, PT, INR is 2.33 today will continue # Hx of CHF stable (not in exacerbation); Patients recent Echo 2013: Inferior wall akinesis. Mild MR. Left ventricle is moderately dilated; repeat echo as outpatient , continue cardiac monitoring # Hypertension continue Metoprolol 50mg PO BID from tomorrow, Hold Lisinopril Since patient was found to be hypotensive . # Hyperlipidemia continue Statin # CAD s/p 2 stents Continue Aspirin, plavix, statin # Mixed connective tissue disorder/ lupus work up as an outpatient, On anticoagulation ; coumadin (maintain INR 2-3) # DVT Px: Coumadin Visit type - Emergency Visit Emergency Visit: Yes ED Registration Date: 10/24/16 Care time: The patient presented to the Emergency Department on the above date and was hospitalized for further evaluation of their emergent condition. - New Patient This patient is new to me today: No - Critical Care Critical Care patient: No
[2016-10-26 12:51] LABS: ALK PHOS 91 U/L (45-117); ANION GAP 12 (8-16); BILIRUBIN,TOTAL 0.8 mg/dL (0.2-1.0); CO2 22 mmol/L (21-32); CREATININE 0.7 mg/dL (0.7-1.3); GLUCOSE,RANDOM 112 mg/dL (74-106); SGOT/AST 60 U/L (15-37); SGPT/ALT 52 U/L (12-78); TOT PROT 6.7 g/dl (6.4-8.2)
[2016-10-26] MEDS: WARFARIN NA 10 MG TABLET (FP) PO SCH (17:37)
[2016-10-26] MEDS: ROSUVASTATIN CA 10 MG TABLET (FP) PO SCH (21:04)
[2016-10-27] MEDS: SODIUM CHLORIDE 1,000 ML IV SCH (00:53)
[2016-10-27] MEDS ORDERED: CEFTRIAXONE 100 ML IVPB SCH (06:00)
[2016-10-27 06:26] LABS: BASOPHIL 0.5 % (0-2.0); EOSINOPHIL 2.5 % (0-4.5); MCH 33.2 pg (25.7-33.7); MEAN CELL VOLUME 97.6 fl (80-96); MEAN PLT VOLUME 10.4 fl (7.5-11.1); NEUTROPHILS 49.8 % (42.8-82.8); PLATELET COUNT 217 K/MM3 (134-434); RDW 13.4 % (11.9-15.9); WHITE BLOOD COUNT 10.4 K/mm3 (4.0-10.0)
[2016-10-27 06:39] LABS: INR 2.65 (0.82-1.09); PROTHROMBIN TIME (PATIENT) 29.7 SEC (9.98-11.88)
[2016-10-27 07:37] LABS: ALBUMIN 2.9 g/dl (3.4-5.0); ALK PHOS 80 U/L (45-117); ANION GAP 10 (8-16); BILIRUBIN,TOTAL 0.7 mg/dL (0.2-1.0); CALCIUM 7.9 mg/dL (8.5-10.1); CO2 23 mmol/L (21-32); CREATININE 0.6 mg/dL (0.7-1.3); GLUCOSE,RANDOM 96 mg/dL (74-106); SGOT/AST 50 U/L (15-37); SGPT/ALT 50 U/L (12-78); TOT PROT 6.6 g/dl (6.4-8.2)
--- NOTE | 2016-10-27 07:50 | PN ---
Teaching Attending Note Name of Resident: Haseeb Jones ATTENDING PHYSICIAN STATEMENT I saw and evaluated the patient. I reviewed the resident's note and discussed the case with the resident. I agree with the resident's findings and plan as documented. Patient is feeling better, with no acute distress Vital Signs Temperature 97.8 F 10/27/16 06:00 Pulse Rate 70 10/27/16 06:00 Respiratory Rate 18 10/27/16 06:00 Blood Pressure 110/66 10/27/16 06:00 O2 Sat by Pulse Oximetry (%) 98 10/26/16 21:00 CBCD WBC 10.4 K/mm3 (4.0-10.0) H 10/27/16 05:35 RBC 4.05 M/mm3 (4.00-5.60) 10/27/16 05:35 Hgb 13.5 GM/dL (11.7-16.9) 10/27/16 05:35 Hct 39.5 % (35.4-49) 10/27/16 05:35 MCV 97.6 fl (80-96) H 10/27/16 05:35 MCHC 34.0 g/dl (32.0-35.9) 10/27/16 05:35 RDW 13.4 % (11.9-15.9) 10/27/16 05:35 Plt Count 217 K/MM3 (134-434) 10/27/16 05:35 MPV 10.4 fl (7.5-11.1) 10/27/16 05:35 CMP Sodium 140 mmol/L (136-145) 10/27/16 06:00 Potassium 4.1 mmol/L (3.5-5.1) 10/27/16 06:00 Chloride 107 mmol/L (98-107) 10/27/16 06:00 Carbon Dioxide 23 mmol/L (21-32) 10/27/16 06:00 Anion Gap 10 (8-16) 10/27/16 06:00 BUN 12 mg/dL (7-18) 10/27/16 06:00 Creatinine 0.6 mg/dL (0.7-1.3) L 10/27/16 06:00 Creat Clearance w eGFR > 60 (>60) 10/27/16 06:00 Random Glucose 96 mg/dL (74-106) 10/27/16 06:00 Calcium 7.9 mg/dL (8.5-10.1) L 10/27/16 06:00 Total Bilirubin 0.7 mg/dL (0.2-1.0) 10/27/16 06:00 AST 50 U/L (15-37) H 10/27/16 06:00 ALT 50 U/L (12-78) 10/27/16 06:00 Alkaline Phosphatase 80 U/L (45-117) 10/27/16 06:00 Total Protein 6.6 g/dl (6.4-8.2) 10/27/16 06:00 Albumin 2.9 g/dl (3.4-5.0) L 10/27/16 06:00 CARDIAC ENZYMES Creatine Kinase 140 IU/L (39-308) 10/24/16 17:10 Troponin I < 0.02 ng/ml (0.00-0.05) 10/24/16 17:10 Current Medications Generic Name Dose Route Start Last Admin Trade Name Freq PRN Reason Stop Dose Admin Aspirin 81 mg 10/25/16 10:00 10/26/16 09:39 Asa - PO 81 mg DAILY JEAN Administration Clopidogrel Bisulfate 75 mg 10/25/16 10:00 10/26/16 09:39 Plavix - PO 75 mg DAILY JEAN Administration Sodium Chloride 1,000 mls @ 100 mls/hr 10/24/16 23:00 10/27/16 00:53 Normal Saline - IV 100 mls/hr ASDIR JEAN Administration Ceftriaxone Sodium 100 mls @ 200 mls/hr 10/27/16 06:00 10/27/16 05:05 Rocephin 2gm Ivpb (Pre-Docked) IVPB 200 mls/hr DAILY@0600 JEAN Administration Metoprolol Succinate 50 mg 10/25/16 10:00 10/26/16 21:04 Toprol Xl - PO 50 mg BID JEAN Administration Oseltamivir Phosphate 75 mg 10/25/16 10:00 10/26/16 21:04 Tamiflu - PO 10/30/16 09:59 75 mg BID JEAN Administration Rosuvastatin Calcium 10 mg 10/25/16 22:00 10/26/16 21:04 Crestor - PO 10 mg HS JEAN Administration Warfarin Sodium 10 mg 10/25/16 18:00 04/02/17 17:37 Coumadin - PO 10 mg DAILY@1800 [facility] Administration Home Medications Medication Instructions Recorded Aspirin [ASA -] 81 mg PO DAILY 05/09/14 Clopidogrel Bisulfate [Plavix -] 75 mg PO DAILY 05/09/14 Lisinopril [Prinivil] 5 mg PO DAILY 05/09/14 Metoprolol Succinate [Toprol XL -] 10 mg PO BID 05/09/14 Warfarin Sodium [Coumadin] 10 mg PO HS 05/09/14 Rosuvastatin Calcium [Crestor] 10 mg PO HS 10/24/16 Oseltamivir Phosphate [Tamiflu -] 75 mg PO BID #4 cap 10/27/16 EKG- NSR 96bpm; LVH; Qtc 480 msec ASSESSMENT/PLAN: Patient is a 40-year-old male with significant past medical history of Hypertension, Hyperlipidemia, coronary artery disease s/p stent (on Coumadin), CHF, antiphospholipid syndrome, mixed connective disorder (not on meds), s/p splenectomy was sent from urgent care with Influenza A positive. On arrival, patient Temp-99.3 F; Tachycardic 98 bpm; Leukocytosis 21.6 # s/p Sepsis due to Influenza , will discharge patient home on Tamiflu, and Augmentin for one week for his pharyngitis # Exudative pharyngitis will send the patient home on po Augmentin x 1 week # S/p splenectomy Patient hasn't received any vaccinations since 2013, received Prevnar vaccine , need to receive pneumovax in 8 weeks, Influnza Vaccine as an outpatient. # Antiphopholipid syndrome on daily coumadin, Daily INR, PT, INR is 3.00 today will continue # Hx of CHF stable; Patients recent Echo 2013: Inferior wall akinesis. Mild MR. Left ventricle is moderately dilated; repeat echo as outpatient # Hypertension controlled continue Metoprolol 50mg PO BID from tomorrow, Hold Lisinopril Since patient was found to be hypotensive . # Hyperlipidemia continue Statin # CAD s/p 2 stents Continue Aspirin, plavix, statin # Mixed connective tissue disorder/ lupus work up as an outpatient, On anticoagulation ; coumadin (maintain INR 2-3) # DVT Px: Coumadin will discharge patient home, further testing as an outpatient , Repeat LFTs in a week, US of liver/abdomen , follow up with ur field marketing associate in a week
[2016-10-27 08:21] VITALS: BP 120/78; PULSE 78; TEMP 98.3
--- NOTE | 2016-10-27 08:44 | DS ---
Physical Exam: SUBJECTIVE: Patient seen and examined OBJECTIVE: Vital Signs Period Temp Pulse Resp BP Sys/[place] Pulse Ox Last 24 Hr 97.8 F-99.3 F 70-80 18-20 106-126/58-78 96-98 PHYSICAL EXAM GENERAL: The patient is awake, alert, and fully oriented, in no acute distress. HEAD: Normal with no signs of trauma. moist mucous membranes. NECK: Trachea midline, full range of motion, supple. LUNGS: Breath sounds equal, clear to auscultation bilaterally, no wheezes, no crackles, no accessory muscle use. HEART: Regular rate and rhythm, S1, S2 without murmur, rub or gallop. ABDOMEN: Soft, nontender, nondistended, normoactive bowel sounds, no guarding, no rebound, no hepatosplenomegaly, no masses. LABS Laboratory Results - last 24 hr 10/26/16 10/26/16 10/26/16 11:15 11:15 11:15 WBC 10.0 D RBC 4.13 Hgb 13.5 Hct 40.0 MCV 96.9 H MCHC 33.8 RDW 13.0 Plt Count 220 MPV 10.5 Neutrophils % 58.9 Lymphocytes % 25.4 Monocytes % 13.1 H Eosinophils % 2.2 D Basophils % 0.4 INR 2.33 H Sodium 140 Potassium 4.1 Chloride 106 Carbon Dioxide 22 Anion Gap 12 BUN 10 Creatinine 0.7 Creat Clearance w eGFR > 60 Random Glucose 112 H D Calcium 8.0 L Total Bilirubin 0.8 D AST 60 H ALT 52 Alkaline Phosphatase 91 Total Protein 6.7 Albumin 3.0 L 10/27/16 10/27/16 10/27/16 05:35 05:35 06:00 WBC 10.4 H RBC 4.05 Hgb 13.5 Hct 39.5 MCV 97.6 H MCHC 34.0 RDW 13.4 Plt Count 217 MPV 10.4 Neutrophils % 49.8 Lymphocytes % 32.7 D Monocytes % 14.5 H Eosinophils % 2.5 Basophils % 0.5 INR 2.65 H Sodium 140 Potassium 4.1 Chloride 107 Carbon Dioxide 23 Anion Gap 10 BUN 12 Creatinine 0.6 L Creat Clearance w eGFR > 60 Random Glucose 96 Calcium 7.9 L Total Bilirubin 0.7 AST 50 H ALT 50 Alkaline Phosphatase 80 Total Protein 6.6 Albumin 2.9 L HOSPITAL COURSE: Date of Admission:10/24/16 Date of Discharge: 10/27/16 40M multiple medical problems admitted with severe sepsis secondary to influenza virus. Went to urgent care center with weakness fever chills and shortnes off breath for a couple days. and was found to be hypotensive and positive for flu A. Patient also has strep pharyngitis. Treated with IV ABx and given prevnar vaccine as he is aslepnic. Patient also had elevated LFts likely from shock liver. Patient treated with tamiflu as well. Discharged today after day 4 of IV Abx. [facility] Minutes to complete discharge: 45 Discharge Summary Reason For Visit: INFLUENZA Current Active Problems Influenza (Acute) Pharyngitis (Acute) Post-splenectomy (Acute) Sepsis (Acute) Condition: Improved - Instructions Diet, Activity, Other Instructions: eat a low sodium low fat diet finish all meds as prescribe continue your home medications follow up with your primary care doctor I will give you a prescription for a lab test to get done in 1 week send the results to your primary care doctor follow up to get your vaccines with Dr. Hogan you got the prevnar while you were here get your flu vaccine every year Referrals: Steffen Hogan MD [Primary Care Provider] - 1 Week Disposition: HOME - Home Medications Comprehensive Discharge Medication List: Ambulatory Orders Aspirin [ASA -] 81 mg PO DAILY 05/09/14 Clopidogrel Bisulfate [Plavix -] 75 mg PO DAILY 05/09/14 Lisinopril [Prinivil] 5 mg PO DAILY 05/09/14 Metoprolol Succinate [Toprol XL -] 10 mg PO BID 05/09/14 Warfarin Sodium [Coumadin] 10 mg PO HS 05/09/14 Rosuvastatin Calcium [Crestor] 10 mg PO HS 10/24/16 Amox-Tr/K Cl [Augmentin - 875Mg Tablet] 1 tab PO BID #14 tablet 10/27/16 Miscellaneous Drug Not In Syst [Outpatient Lab Test] 1 each ASDIR #1 misc 10/10 Oseltamivir Phosphate [Tamiflu -] 75 mg PO BID #4 cap 10/27/16 This patient is new to me today: Yes Date on this admission: 10/27/16 Emergency Visit: No Critical Care patient: No - Discharge Referral Referred to [facility] Med P.[facility] No
== END 2016-10-27 09:33 | disposition home or self-care (01) | DRG 872 ==
LOC: JER 16:40 → JERBED 20:20 → J4S 23:25
PROVIDERS: ADMIT Internal Medicine; ATTEND Internal Medicine
DX: A41.9 Sepsis, unspecified organism (principal); D68.61 Antiphospholipid syndrome; J11.1 Influenza due to unidentified influenza virus with other respiratory manifestations; I50.9 Heart failure, unspecified; I11.0 Hypertensive heart disease with heart failure; E78.5 Hyperlipidemia, unspecified; I25.10 Atherosclerotic heart disease of native coronary artery without angina pectoris; Z98.61 Coronary angioplasty status; F17.210 Nicotine dependence, cigarettes, uncomplicated; R65.20 Severe sepsis without septic shock; J02.0 Streptococcal pharyngitis
CPT/HCPCS: 36415; 71010-TC; 80053; 81003; 81015; 82550; 82803; 83036; 83605; 83735; 84100; 84484; 85025; 85610; 85730; 86850; 86870; 86900; 86901; 86902; 87040; 87070; 87086; 87254; 87804; 90670; 93005; 93010; 99284-25

== ENCOUNTER 2024-06-03 18:08 | Emergency (ER) | payer BC, OTHER ==
[2024-06-03 18:38] VITALS: BP 125/72; PULSE 75; RESP 16; TEMP 98.6; BMI 35.2
== END 2024-06-03 19:46 | disposition home or self-care (01) ==
LOC: FER 18:08
DX: M79.89 Other specified soft tissue disorders (principal)
CPT/HCPCS: 93971-TC; 99284-25